=== PATIENT | male | born 1940 | race Caucasian/White ===

== ENCOUNTER 2017-06-21 09:33 | Outpatient (CLI) | payer MEDICARE, OTHER | END 2017-06-21 09:34 | disposition home or self-care (01) | LOC: SC 09:33 | PROVIDERS: ATTEND Internal Medicine Pulmonary Disease | DX: R53.83 Other fatigue (principal); E66.9 Obesity, unspecified; Z68.31 Body mass index [BMI] 31.0-31.9, adult | CPT/HCPCS: 99203; G0463; 99212 ==

== ENCOUNTER 2017-08-09 15:52 | Outpatient (CLI) | payer MEDICARE, OTHER ==
--- NOTE | 2017-08-10 09:51 | XRAY Report ---
DATE OF SERVICE: 08/09/2017 TWO VIEW CHEST: 08/09/2017 CLINICAL INDICATION: Left lower lobe rhonchi. FINDINGS: Frontal and lateral views of the chest demonstrate a normal cardiac silhouette. There is minimal linear atelectasis at the bases. No focal infiltrate, effusion, or pneumothorax is present. IMPRESSION: MINIMAL BASILAR ATELECTASIS. TD: 08/10/2017 10:50
--- NOTE | 2017-08-10 09:54 | XRAY Report ---
DATE OF SERVICE: 08/09/2017 THREE VIEW THORACIC SPINE: 08/09/2017 CLINICAL INDICATION: Point tenderness. FINDINGS: AP, lateral, swimmers views of the thoracic spine demonstrate normal height and alignment of the vertebral bodies. There has been previous posterior stephanie and pedicle screw fusion of L1-L2. There is no evidence of acute fracture or subluxation. No paraspinal hematoma is seen. Mild degenerative disk disease is present. IMPRESSION: MILD DEGENERATIVE CHANGES. PREVIOUS UPPER THORACIC FUSION. NO EVIDENCE OF ACUTE FRACTURE. TD: 08/10/2017 10:52
== END 2017-08-09 15:53 | disposition home or self-care (01) ==
LOC: DI 15:52
PROVIDERS: ATTEND Internal Medicine
DX: M51.34 Other intervertebral disc degeneration, thoracic region (principal); J98.11 Atelectasis; Z98.1 Arthrodesis status
CPT/HCPCS: 71046; 72070

== ENCOUNTER 2017-09-11 20:01 | Outpatient (CLI) | payer MEDICARE, OTHER | END 2017-09-11 20:02 | disposition home or self-care (01) | LOC: SC 20:01 | PROVIDERS: ATTEND Internal Medicine Pulmonary Disease | DX: G47.61 Periodic limb movement disorder (principal) | CPT/HCPCS: 95810 ==

== ENCOUNTER 2017-10-05 09:27 | Outpatient (CLI) | payer MEDICARE, OTHER | END 2017-10-05 09:28 | disposition home or self-care (01) | LOC: SC 09:27 | PROVIDERS: ATTEND Nurse Practitioner Family | DX: G47.61 Periodic limb movement disorder (principal); R06.83 Snoring | CPT/HCPCS: 99214; G0463; 99212 ==

== ENCOUNTER 2017-11-19 22:11 | Emergency (ER) | payer MEDICARE, OTHER ==
[2017-11-19 22:21] VITALS: BP 104/63
[2017-11-19] MEDS ORDERED: TETANUS/DIPHTHERIA/PERTUSSIS 0.5 ML SYRINGE IM ONE (23:47)
[2017-11-19] MEDS ORDERED: BUFFERED LIDOCAINE 10 ML SYRINGE ONE (23:47)
--- NOTE | 2017-11-19 23:49 | ED Physician Documentation ---
PD HPI UPPER EXT INJURY - Stated complaint Stated Complaint: LFT FINGER LAC - Chief complaint Chief Complaint: Laceration - History obtained from History obtained from: Patient, Family - History of Present Illness Location: Other (Right-handed gentleman with unknown tetanus status accidentally stabbed his left hand with a steak knife while eating just prior to arrival.) Review of Systems Constitutional: reports: Reviewed and negative Eyes: reports: Reviewed and negative Cardiac: reports: Reviewed and negative PD PAST MEDICAL HISTORY - Past Medical History Past Medical History: No - Past Surgical History Past Surgical History: No - Allergies Allergies/Adverse Reactions: Allergies Allergy/AdvReac Type Severity Reaction Status Date / Time No Known Drug Allergies Allergy Verified 11/19/17 22:19 - Social History Does the pt smoke?: No Smoking Status: Never smoker - Immunizations Immunizations are current?: No Immunizations: TDAP >10years/unknown PD ED PE NORMAL - Vitals Vital signs reviewed: Yes - General General: Alert and oriented X 3, No acute distress - Extremities Extremities: Other (There is a slightly less than 1 cm laceration just distal to the second MCP dorsally on the left hand with intact extensor tendon function and normal neurovascular status at the tip.) - Neuro Neuro: Alert and oriented X 3, Normal speech Results - Vitals Vitals: Vital Signs - 24 hr 11/19/17 22:13 Temperature 36.1 C L Heart Rate 67 Respiratory 18 Rate Blood Pressure 104/63 O2 Saturation 95 Oxygen O2 Source Room air Procedures - Laceration (location) Left hand Length in cm: 1 Wound type: Linear Neurovascular status: Sensory intact, Motor intact, Vascular intact Tendon involvement: Tendon intact Anesthesia: Lidocaine 1%, With bicarb Wound Preparation: Betadine, Irrigated copiously NS Skin layer closure: Nylon, Interrupted, Size #-0 - enter number (4-0), Sutures - enter # (2) Other: Tetanus booster given Complexity: Simple Departure - Departure Disposition: 01 Home, Self Care Clinical Impression: Laceration Condition: Good Record reviewed to determine appropriate education?: Yes Instructions: ED Laceration Hand Comments: Come back for any signs of infection which would include: Redness, swelling, drainage, increased pain, or fevers. Follow-up with your physician in 10-14 days for suture removal.
== END 2017-11-19 23:54 | disposition home or self-care (01) ==
LOC: ED 22:11
DX: S61.412A Laceration without foreign body of left hand, initial encounter (principal); W26.0XXA Contact with knife, initial encounter; Z23 Encounter for immunization
CPT/HCPCS: 12001; 90471; 99282

== ENCOUNTER 2017-12-26 15:38 | Outpatient (CLI) | payer MEDICARE, OTHER ==
--- NOTE | 2017-12-29 08:15 | XRAY Report ---
Procedure Date: 12/26/2017 Accession Number: [id number] / [id number] Procedure: XR - Hips 2V BILAT CPT Code: FULL RESULT: EXAM: Hips 2V BILAT DATE: 12/26/2017 4:12 PM CLINICAL HISTORY: PAIN AND LOW ROM,NECK,PELVIC AND PERINEAL PAIN,SUNIL TECHNIQUE: Frontal view of the pelvis and bilateral frog-leg lateral views of the hips COMPARISON: None FINDINGS: There is no evidence of fracture or dislocation. Postoperative changes are seen in the pelvis. Mild bilateral hip osteoarthritis is present. IMPRESSION: Mild bilateral osteoarthritis. No evidence of fracture.
--- NOTE | 2018-01-02 09:36 | XRAY Report ---
Procedure Date: 12/27/2017 Accession Number: [id number] / [id number] Procedure: XR - Cervical Spine Complete CPT Code: FULL RESULT: EXAM: CERVICAL SPINE RADIOGRAPHY EXAM DATE: 12/26/2017 04:25 PM. CLINICAL HISTORY: Pain and low ROM, neck, pelvic and perineal pain. COMPARISONS: Chest radiograph 12/26/2017. Thoracic spine radiograph 08/09/2017. TECHNIQUE: 3 views. FINDINGS: Alignment: No spondylolisthesis. No scoliosis. Bones: The cervical vertebral bodies and posterior elements are well visualized through C6-C7. Below this level there are obscured by the patient's shoulders. No fracture. No suspicious focal osseous lesion. Calcification noted in the posterior soft tissues/musculature at the C4 level. Disks: Multilevel disk height loss present throughout the cervical spine, greatest and severe at C5-C6 and C6-C7. Facets: Multilevel [id number] degenerative facet disease present. Soft Tissues: No prevertebral soft tissue swelling. Visualized lung apices are clear. Upper thoracic PSIF again noted. IMPRESSION: No acute abnormality of the cervical spine with multilevel degenerative spondylitic changes, greatest and severe disk height loss at C5-C6 and C6-C7 as before. RADIA
--- NOTE | 2018-01-02 09:37 | XRAY Report ---
Procedure Date: 12/27/2017 Accession Number: [id number] / [id number] Procedure: XR - Chest 2 View X-Ray CPT Code: 77337 FULL RESULT: EXAM: CHEST RADIOGRAPHY EXAM DATE: 12/26/2017 04:24 PM. CLINICAL HISTORY: Chest pain after fall. COMPARISON: Chest radiograph 08/09/2017. Same-day cervical spine radiographs. TECHNIQUE: 2 views. FINDINGS: Lungs/Pleura: No focal opacities evident. No pleural effusion. No pneumothorax. Normal volumes. Mediastinum: Heart and mediastinal contours are unremarkable. Other: Upper thoracic PSIF again noted. 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 IMPRESSION: No acute cardiopulmonary abnormality. RADIA
== END 2017-12-26 15:39 | disposition home or self-care (01) ==
LOC: DI 15:38
PROVIDERS: ATTEND Internal Medicine
DX: M16.0 Bilateral primary osteoarthritis of hip (principal); M50.31 Other cervical disc degeneration, high cervical region; M47.892 Other spondylosis, cervical region; R07.81 Pleurodynia; R07.9 Chest pain, unspecified; R29.6 Repeated falls
CPT/HCPCS: 71046; 72040; 73521

== ENCOUNTER 2018-05-03 15:36 | Outpatient (CLI) | payer MEDICARE, OTHER ==
--- NOTE | 2018-05-04 13:46 | CT Report ---
Reason: LOWER EXT WEAKNESS Procedure Date: 05/03/2018 Accession Number: [id number] / [id number] Procedure: CT - Cervical Spine W/O CPT Code: FULL RESULT: EXAM: CT CERVICAL SPINE WITHOUT CONTRAST DATE: 05/03/2018 03:55 PM. HISTORY: Lower extremity weakness COMPARISONS: Plain film radiographs 12/26/2017. TECHNIQUE: Thin-section axial images were acquired of the cervical spine without contrast. Post-processing: Coronal and sagittal reformats. Other: None. In accordance with CT protocol optimization, one or more of the following dose reduction techniques were utilized for this exam: automated exposure control, adjustment of mA and/or KV based on patient size, or use of iterative reconstructive technique. FINDINGS: Alignment: There is 2 mm anterolisthesis of C4 on C5. Bones: There is hardware in place status post remote posterior fusion at the T2 and T3 levels Interspace Levels/Facets: C1-C2: Unremarkable. C2-C3: There is moderate left facet hypertrophy. There is mild left neural foraminal narrowing. C3-C4: There is a prominent right posterior endplate osteophyte with moderate narrowing of right aspect of central canal. There is mild right neural foraminal narrowing. There is moderate left facet hypertrophy. C4-C5: There is severe left facet hypertrophy. There is 2 mm anterolisthesis of C4 on C5. No evidence of central canal narrowing. Mild left neural foraminal narrowing. C5-C6: There is disk height loss and endplate degenerative changes. There is a disk osteophyte complex with mild central canal narrowing. There is moderate bilateral neural foraminal narrowing. C6-C7: There is disk height loss. No significant central canal narrowing. There is uncovertebral osteophytosis with mild left and moderate right neural foraminal narrowing. C7-T1: Unremarkable. Musculature: Normal. No fatty atrophy. Other: The paravertebral and prevertebral soft tissues are unremarkable. The lung apices are clear. IMPRESSION: 1. C3-C4 endplate osteophytosis with moderate narrowing of right central canal. 2. C5-C6 disk osteophyte complex with mild central canal narrowing. 3. Moderate bilateral C5-C6 and moderate right C6-C7 neural foraminal narrowing. 4. Mild right C3-C4, mild left C4-C5, and mild left C6-C7 neural foraminal narrowing. RADIA
--- NOTE | 2018-05-04 14:13 | CT Report ---
Reason: LOWER EXT WEAKNESS Procedure Date: 05/03/2018 Accession Number: [id number] / [id number] Procedure: CT - Lumbar Spine W/O CPT Code: FULL RESULT: EXAM: CT LUMBAR SPINE WITHOUT CONTRAST EXAM DATE: 05/03/2018 03:55 PM. CLINICAL HISTORY: Lower extremity weakness COMPARISONS: None. TECHNIQUE: Thin-section axial images were acquired of the lumbar spine from T12 to S1 without contrast. Post-processing: Coronal and sagittal reformats. Other: None. In accordance with CT protocol optimization, one or more of the following dose reduction techniques were utilized for this exam: automated exposure control, adjustment of mA and/or KV based on patient size, or use of iterative reconstructive technique. FINDINGS: Alignment: No scoliosis or spondylolisthesis. Bones: Five awf-zib-tcuftuh lumbar vertebral bodies are present. No fractures or bone lesions. Disk Levels/Facets: T12-L1: There is disk height loss. There is a disk osteophyte complex. There is ligamentum flavum thickening. There is moderate central canal narrowing. L1-L2: There is a disk height loss disk bulge and endplate osteophytes. There is moderate bilateral facet hypertrophy. There is moderate to severe central canal narrowing. There is moderate right and mild left neural foraminal narrowing. L2-L3: There is disk height loss and a disk bulge. There is severe bilateral facet hypertrophy. There is moderate central canal narrowing. There is moderate bilateral neural foraminal narrowing. L3-L4: There is disk height loss. There is moderate facet hypertrophy. No significant central canal narrowing. Moderate bilateral neural foraminal narrowing. L4-L5: There is disk height loss and a mild disk bulge. There is severe bilateral facet hypertrophy. Prominent osteophytosis adjacent to the lamina and patient is likely status post prior laminectomies. There is mild central canal narrowing. There is mild right and moderate left neural foraminal narrowing. L5-S1: Mild disk bulge. Moderate bilateral facet hypertrophy. No significant central canal narrowing. Mild left neural foraminal narrowing. Musculature: There is moderate atrophy of posterior paraspinous musculature. Other: There is intermediate density soft tissue band extending from L2-L5 suggestive of prior surgery. There is a punctate right renal calculus. There are aortic calcifications. IMPRESSION: 1. L1-L2 disk bulge and facet hypertrophy with moderate to severe central canal narrowing. 2. L2-L3 disk bulge and posterior element degenerative changes with moderate central canal narrowing. 3. Mild L4-L5 central canal narrowing. 4. Moderate right L1-L2, moderate bilateral L2-L3, moderate bilateral L3-L4, and moderate left L4-L5 neural foraminal narrowing. 5. Mild left L1-L2, mild right L4-L5, and mild left L5-S1 neural foraminal narrowing. RADIA
== END 2018-05-03 15:37 | disposition home or self-care (01) ==
LOC: DI 15:36
PROVIDERS: ATTEND Internal Medicine
DX: M47.9 Spondylosis, unspecified (principal); M51.36 Other intervertebral disc degeneration, lumbar region; M48.061 Spinal stenosis, lumbar region without neurogenic claudication; M43.12 Spondylolisthesis, cervical region; M50.322 Other cervical disc degeneration at C5-C6 level; M48.02 Spinal stenosis, cervical region
CPT/HCPCS: 72125; 72131

== ENCOUNTER 2019-01-12 18:39 | Emergency (ER) | payer MEDICARE, OTHER ==
--- NOTE | 2019-01-12 20:08 | ED Physician Documentation ---
History of Present Illness - Stated complaint Stated Complaint: GLF - Chief complaint Chief Complaint: Trauma Hd/Nk - History obtained from History obtained from: Patient, Friend - History of Present Illness Timing: Yesterday (Trip and fall yesterday with lateral and medial left foot pain that is persistent. He hit his head mildly but denies loss of consciousness or headache. He is not anticoagulated.) Review of Systems Constitutional: reports: Reviewed and negative Cardiac: reports: Reviewed and negative Respiratory: reports: Reviewed and negative PD PAST MEDICAL HISTORY - Past Medical History Past Medical History: Yes Neuro: Head injury - Past Surgical History Past Surgical History: Yes Ortho: Spine surgery - Present Medications Home Medications: Ambulatory Orders Medication Instructions Recorded Confirmed Methocarbamol 0 mg 01/12/19 Oxycodone HCl/Acetaminophen 1 - 2 each PO Q6H PRN #10 tablet 01/12/19 [Percocet 5-325 mg Tablet] traZODone [Desyrel] 0 mg 01/12/19 - Allergies Allergies/Adverse Reactions: Allergies Allergy/AdvReac Type Severity Reaction Status Date / Time No Known Drug Allergies Allergy Verified 11/19/17 22:19 - Social History Does the pt smoke?: No Smoking Status: Never smoker Does the pt drink ETOH?: No Does the pt have substance abuse?: No - Immunizations Immunizations are current?: No Immunizations: TDAP >10years/unknown PD ED PE NORMAL - Vitals Vital signs reviewed: Yes - General General: Other (Has some memory difficulties) - HEENT HEENT: PERRL, EOMI - Extremities Extremities: Other (He has 4-second capillary refill in the left foot, mild tenderness over the medial and lateral forefoot. DP pulses barely palpable, monophasic on Doppler to both DP and PT.) - Neuro Neuro: field account director 2-12 intact Eye Opening: Spontaneous Motor: Obeys Commands Results - Vitals Vitals: Vital Signs - 24 hr 01/12/19 18:45 Temperature 36.5 C Heart Rate 65 Respiratory 16 Rate Blood Pressure 145/75 H O2 Saturation 96 Oxygen O2 Source Room air - Rads (name of study) L foot XR Radiology: EMP read contemporaneously (NAD) Procedures - Splint (location) L 4th finger Splint applied by: Physician Type of splint: Metal foam finger splint Other: Patient tolerated well, No complications, Neurovascular intact PD MEDICAL DECISION MAKING - ED course ED course: 78-year-old gentleman took a fall yesterday and injured his left foot. The examination is really more consistent with vascular disease. He does have monophasic pulses with 4 to 5-second capillary refill. X-ray was negative. Just prior to discharge he also noted left fourth finger pain, it was quite swollen at the PIP and I recommend recommended an x-ray of this it well which he refused saying he had to leave at the time. It was splinted and advised close recheck. He still had full range of motion so was not dislocated. Departure - Departure Disposition: Home, Self Care Clinical Impression: Sprain of left foot Qualifiers: Encounter type: initial encounter Qualified Code(s): S93.602A - Unspecified sprain of left foot, initial encounter Condition: Good Record reviewed to determine appropriate education?: Yes Health Concerns: left foot injury Plan of Treatment: X-rays are negative. Clinically you do have some vascular disease in that foot and you should talk with your physician about a referral to a vascular surgeon. You are not pulseless though. Care Goals: pain control Assessment: as above Instructions: ED Sprain Foot Follow-Up: EDNA VELÁZQUEZ MD [Primary Care Provider] - Prescriptions: Oxycodone HCl/Acetaminophen [Percocet 5-325 mg Tablet] 1 - 2 each PO Q6H PRN #10 tablet PRN Reason: pain
--- NOTE | 2019-01-12 21:08 | XRAY Report ---
Reason: foot inj Procedure Date: 01/12/2019 Accession Number: [id number] / [id number] Procedure: XR - Foot 3 View LT CPT Code: FULL RESULT: EXAM: LEFT FOOT RADIOGRAPHY EXAM DATE: 01/12/2019 08:45 PM. CLINICAL HISTORY: Foot injury last night. Redness and swelling. COMPARISON: None. TECHNIQUE: 3 views. FINDINGS: Bones: Normal. No fractures or bone lesions. Joints: Subtalar arthrodesis. No subluxations. Soft Tissues: Unremarkable. IMPRESSION: No acute bony abnormality identified. RADIA
[2019-01-12] MEDS ORDERED: oxyCODONE/ACET 5/325 Prepack 4 PO STA (21:13)
[2019-01-12 21:22] VITALS: BP 134/63
== END 2019-01-12 21:29 | disposition home or self-care (01) ==
LOC: ED 18:39
DX: S93.602A Unspecified sprain of left foot, initial encounter (principal); W01.0XXA Fall on same level from slipping, tripping and stumbling without subsequent striking against object, initial encounter; M79.645 Pain in left finger(s); M79.89 Other specified soft tissue disorders; I73.9 Peripheral vascular disease, unspecified
CPT/HCPCS: 29130; 99283

== ENCOUNTER 2019-01-24 09:20 | Outpatient (CLI) | payer MEDICARE, OTHER ==
--- NOTE | 2019-01-24 14:04 | Ultrasound Report ---
Reason: ABNORMAL RESULT OF OTHER CARDIOVASCULAR FUNCTION S Procedure Date: 01/24/2019 Accession Number: [id number] / [id number] Procedure: US - Duplex Lwr Ext Arterial Bilat CPT Code: FULL RESULT: EXAM: BILATERAL LOWER EXTREMITY ARTERIAL DOPPLER ULTRASOUND EXAM DATE: 01/24/2019 10:49 AM. CLINICAL HISTORY: Abnormal result of other cardiovascular functions. COMPARISON: None. TECHNIQUE: Real-time sonographic vascular imaging was performed by the supervisor cell room, utilizing color-flow, Doppler flow, and spectral analysis. Multiple pharmacy services representative static images were saved for review. FINDINGS: Lower extremity arterial duplex examination is performed with color Doppler, spectral Doppler and grayscale Doppler. No significant focal atherosclerotic disease is seen by sanchez scale Doppler in either lower extremity arterial system. Color Doppler demonstrates the arterial system of both lower extremities to be patent were sampled as described below. Spectral Doppler demonstrates preserved brisk systolic upstrokes throughout with triphasic or biphasic waveforms. RIGHT LOWER EXTREMITY: TURF FARMER: PSV 95 cm/sec, triphasic waveform. PSFA: PSV 89 cm/sec, triphasic waveform. MSFA: PSV 87 cm/sec, triphasic waveform. DSFA: PSV 46 cm/sec, triphasic waveform. PFA: PSV 70 cm/sec, triphasic waveform.. POP: PSV 49 cm/sec, triphasic waveform. LEANNE: PSV 70 cm/sec, triphasic waveform. EQUITY STRUCTURER: PSV 89 cm/sec, triphasic waveform. KARYN: PSV 87 cm/sec, triphasic waveform. DPA: PSV 53 cm/sec, triphasic waveform. LEFT LOWER EXTREMITY: TURF FARMER: PSV 112 cm/sec, triphasic waveform.. PSFA: PSV 80 cm/sec, triphasic waveform. MSFA: PSV 79 cm/sec, triphasic waveform. DSFA: PSV 43 cm/sec, biphasic waveform. PFA: PSV 62 cm/sec, triphasic waveform. POP: PSV 52 cm/sec, biphasic waveform. LEANNE: PSV 84 cm/sec, biphasic waveform. EQUITY STRUCTURER: PSV 86 cm/sec, biphasic waveform. KARYN: PSV 43 cm/sec, biphasic waveform. DPA: PSV 36 cm/sec, biphasic waveform. IMPRESSION: Normal study. RADIA
--- NOTE | 2019-01-24 15:58 | Ultrasound Report ---
Reason: ABNORMAL RESULT OF OTHER CARDIOVASCULAR FUNCTION S Procedure Date: 01/24/2019 Accession Number: [id number] / [id number] Procedure: US - Duplex Ext Veins Bilateral CPT Code: FULL RESULT: EXAM: BILATERAL LOWER EXTREMITY VENOUS ULTRASOUND EXAM DATE: 01/24/2019 10:01 AM. CLINICAL HISTORY: ABNORMAL RESULT OF OTHER CARDIOVASCULAR FUNCTION STUDIES COMPARISON: None. TECHNIQUE: Real-time sonographic vascular imaging was performed by the public relations player through the lower extremities utilizing both color-flow and Doppler spectral analysis. Multiple sales service representative static images were saved for review. FINDINGS: Right: Common Femoral Vein (CFV): Normal. CFV-GSV Junction: Normal. Profunda Femoral Vein (PFV): Normal. Femoral Vein (FV) Prox: Normal. Femoral Vein (FV) Mid: Normal. Femoral Vein (FV) Dist: Normal. Popliteal Vein: Normal. Posterior Tibial Veins: Normal. Peroneal Veins: Normal. Left: Common Femoral Vein (CFV): Normal. CFV-GSV Junction: Normal. Profunda Femoral Vein (PFV): Normal. Femoral Vein (FV) Prox: Normal. Femoral Vein (FV) Mid: Normal. Femoral Vein (FV) Dist: Normal. Popliteal Vein: Normal. Posterior Tibial Veins: Normal. Peroneal Veins: Normal. Other: None. IMPRESSION: No evidence for deep venous thrombosis bilateral lower extremities. RADIA
== END 2019-01-24 09:21 | disposition home or self-care (01) ==
LOC: DI 09:20
PROVIDERS: ATTEND Nurse Practitioner Family
DX: R94.39 Abnormal result of other cardiovascular function study (principal)
CPT/HCPCS: 93925; 93970

== ENCOUNTER 2019-06-19 10:31 | Emergency (ER) | payer MEDICARE, OTHER ==
--- NOTE | 2019-06-19 11:10 | ED Physician Documentation ---
PD HPI HEAD INJURY - Stated complaint Stated Complaint: GLF/HEAD INJ - Chief complaint Chief Complaint: Trauma Hd/Nk - History obtained from History obtained from: Patient, Family - History of Present Illness Mechanism of head injury: Fell Where head injury occurred: Home Timing - onset: Last night Quality of pain: Pain (To touch) Associated symptoms: Neck pain, Paresthesias (Neuropathy in the lower extremities bilaterally). No: LOC, Amnesia, Nausea / vomiting Contributing factors: No: Anticoagulated Recently seen: Not recently seen - Additional information Additional information: This is a 78-year-old man who presents with his complaints that he fell last night around 3:15 in the morning as he was getting up to go to the bathroom. He was walking with his walker lost his balance and fell backwards hitting his head on their heavy bedpost and then over onto the floor. He did not get knocked out. There was not any blood but he now has sore spots on his head and neck. His could not convince him to come in last night however the caregivers that came in today and know him well convinced him to come in. His said while he was on the floor last night he thought that there were fires all around and he was calling out for help. He did pull himself up off the floor without any assistance. He has not had any blurry or double vision. He does not feel dizzy. No vomiting. He has a chronic neuropathy but no new numbness or tingling or weakness. Last week he was having some diarrhea that has subsequently resolved. He and his had very different stories about how often he is falling and I cannot get a clear history of what his baseline mental status is. His says that even just yesterday he was not cooperating with her and ended up falling to the ground but did not hit his head. He is not wanting to comply with what she is asking him to do at home and this seems to be getting gradually worse. Review of Systems Constitutional: denies: Fever, Fatigue Eyes: denies: Decreased vision Ears: denies: Ear pain Nose: denies: Rhinorrhea / runny nose, Congestion Throat: denies: Sore throat Cardiac: denies: Chest pain / pressure, Palpitations Respiratory: denies: Dyspnea, Cough GI: denies: Abdominal Pain, Nausea, Vomiting, Diarrhea : denies: Dysuria, Frequency, Incontinent Skin: denies: Rash Musculoskeletal: reports: Neck pain, Back pain (Chronic back pain he has had prior back surgery.) Neurologic: reports: Numbness (Neuropathy in the lower extremities bilaterally), Confused (Seems to be worsening recently), Headache (States that the bumps on his head or sore), Head injury. denies: Focal weakness, Syncope Endocrine: reports: Other (Patient is not a diabetic) PD PAST MEDICAL HISTORY - Past Medical History Neuro: Head injury - Past Surgical History Past Surgical History: Yes Ortho: Spine surgery - Present Medications Home Medications: Ambulatory Orders Medication Instructions Recorded Confirmed Methocarbamol 0 mg 01/12/19 Oxycodone HCl/Acetaminophen 1 - 2 each PO Q6H PRN #10 tablet 01/12/19 [Percocet 5-325 mg Tablet] traZODone [Desyrel] 0 mg 01/12/19 - Allergies Allergies/Adverse Reactions: Allergies Allergy/AdvReac Type Severity Reaction Status Date / Time No Known Drug Allergies Allergy Verified 06/19/19 10:45 - Social History Does the pt smoke?: No Smoking Status: Never smoker Does the pt drink ETOH?: No Does the pt have substance abuse?: No - Immunizations Immunizations are current?: No Immunizations: TDAP >10years/unknown PD ED PE NORMAL - Vitals Vital signs reviewed: Yes - General General: No acute distress, Well developed/nourished, Other (He is clearly having memory issues. He frequently asks his for clarification of things.). No: Alert and oriented X 3 - HEENT HEENT: Atraumatic (I do not see any hematoma or bruising to the head or neck. There is no abrasion.), PERRL, EOMI, Moist mucous membranes, Pharynx benign - Neck Neck: No bony TTP, No adenopathy - Cardiac Cardiac: RRR, No murmur, Strong equal pulses - Respiratory Respiratory: No respiratory distress, Clear bilaterally - Abdomen Abdomen: Normal bowel sounds, Soft, Non tender, Non distended, No organomegaly - Derm Derm: Normal color, Warm and dry, No rash - Extremities Extremities: No edema - Neuro Neuro: light bulb replacer 2-12 intact, No motor deficit, No sensory deficit, Normal speech, Other ([id number] is intact). No: Alert and oriented X 3 (Oriented to person and place but did not know the day of week) - Psych Psych: Normal mood, Normal affect Results - Vitals Vitals: Vital Signs - 24 hr 06/19/19 06/19/19 06/19/19 10:45 11:00 11:30 Temperature 36.6 C Heart Rate 66 70 65 Respiratory 17 18 18 Rate Blood Pressure 151/75 H 164/87 H 140/99 H O2 Saturation 96 97 100 06/19/19 06/19/19 06/19/19 12:30 13:19 13:30 Temperature Heart Rate 59 L 60 76 Respiratory 17 12 14 Rate Blood Pressure 147/84 H 167/71 H 169/81 H O2 Saturation 98 97 97 06/19/19 06/19/19 06/19/19 14:00 14:30 15:00 Temperature Heart Rate 82 72 68 Respiratory 17 15 13 Rate Blood Pressure 159/77 H 113/90 H 159/81 H O2 Saturation 97 96 97 06/19/19 15:30 Temperature Heart Rate 66 Respiratory 16 Rate Blood Pressure 130/63 O2 Saturation 97 Oxygen O2 Source Room air - Labs Labs: Laboratory Tests 06/19/19 06/19/19 06/19/19 12:23 12:23 12:33 WBC 8.3 RBC 4.36 L Hgb 13.6 L Hct 41.8 L MCV 95.9 H MCH 31.2 H MCHC 32.5 RDW 13.1 Plt Count 206 MPV 10.0 Neut # (Auto) 5.0 Lymph # (Auto) 2.3 [place] # (Auto) 0.7 Eos # (Auto) 0.2 Baso # (Auto) 0.0 Absolute Nucleated RBC 0.00 Nucleated RBC % 0.0 Sodium 140 Potassium 4.1 Chloride 105 Carbon Dioxide 27 Anion Gap 8.0 BUN 22 H Creatinine 1.3 H Estimated GFR (MDRD) 54 L Glucose 96 Calcium 8.7 Total Bilirubin 0.7 AST 21 ALT 17 Alkaline Phosphatase 43 Total Protein 6.8 Albumin 4.0 Globulin 2.8 Albumin/Globulin Ratio 1.4 Lipase 38 Urine Color YELLOW Urine Clarity CLEAR Urine pH 6.0 Ur Specific [place] <=1.005 Urine Protein NEGATIVE Urine Glucose (UA) NEGATIVE Urine Ketones NEGATIVE Urine Occult Blood NEGATIVE Urine Nitrite NEGATIVE Urine Bilirubin NEGATIVE Urine Urobilinogen 0.2 (NORMAL) Ur Leukocyte Esterase NEGATIVE Ur Microscopic Review NOT INDICATED Urine Culture Comments NOT INDICATED PD MEDICAL DECISION MAKING - ED course Complexity details: reviewed results, re-evaluated patient, d/w patient, d/w family ED course: Laboratory studies are unremarkable. He does not have a urinary tract infection. His CT scan showed no evidence of hemorrhage or subdural. The radiologist did make a comment about the ventricular size and possibility of normal pressure hydrocephalus. The patient does have symptoms of confusion being off balance and some urinary incontinence although he has had the incontinence he says for years and the neuropathy he was always relating to his back. I did call and consult with the neurologist that he saw in 2018 who actually performed an EEG, Dr. Ruelas, and he did not feel that any further work-up for normal pressure hydrocephalus needed to be pursued at this time. The patient has an appointment with his primary care provider in July and there is a friend at the bedside now when I went in to talk with them tells me that they are arranging for them to be admitted for assisted living but it will not happen until the end of August. His cognitive symptoms certainly are consistent with worsening dementia which was also the feeling of the neurologist. Departure - Departure Disposition: 01 Home, Self Care Clinical Impression: Confusion, Neuropathy Fall Qualifiers: Encounter type: initial encounter Qualified Code(s): W19.XXXA - Unspecified fall, initial encounter Condition: Good Instructions: ED Confusion Follow-Up: EDNA VELÁZQUEZ MD [Primary Care Provider] - Comments: Keep the appointment with your primary care provider in the mid July. Make sure that whenever you are up you are ambulating with your walker to reduce the risk of further falls. Return as needed.
[2019-06-19 12:31] LABS: BASOPHILS % (AUTO) 0.4 %; EOSINOPHILS # (AUTO) 0.2 10^3/uL (0.0-0.7); EOSINOPHILS % (AUTO) 2.4 %; HGB - HEMOGLOBIN 13.6 g/dL (14.0-18.0); LYMPHOCYTES # (AUTO) 2.3 10^3/uL (1.5-3.5); LYMPHOCYTES % (AUTO) 27.8 %; MEAN CORPUSCULAR HEMOGLOBIN 31.2 pg (27.0-31.0); MEAN CORPUSCULAR HGB CONC 32.5 g/dL (32.0-36.0); MEAN CORPUSCULAR VOLUME 95.9 fL (80.0-94.0); MONOCYTES # (AUTO) 0.7 10^3/uL (0.0-1.0); MONOCYTES % (AUTO) 8.9 %; NEUTROPHILS % (AUTO) 60.1 %; PLT - PLATELET COUNT 206 10^3/uL (130-450); RED BLOOD COUNT 4.36 10^6/uL (4.70-6.10); RED CELL DISTRIBUTION WIDTH 13.1 % (12.0-15.0); WHITE BLOOD COUNT 8.3 x10^3/uL (4.8-10.8)
--- NOTE | 2019-06-19 12:36 | CT Report ---
Reason: head injury; off balance Procedure Date: 06/19/2019 Accession Number: [id number] / [id number] Procedure: CT - HEAD WO CPT Code: Final Report FULL RESULT: EXAM: CT HEAD EXAM DATE: 06/19/2019 12:09 PM. CLINICAL HISTORY: Fall. Head injury. Off balance COMPARISON: None. TECHNIQUE: Multiaxial CT images were obtained from the foramen magnum to the vertex. Reformats: Sagittal and coronal. IV contrast: None. In accordance with CT protocol optimization, one or more of the following dose reduction techniques were utilized for this exam: automated exposure control, adjustment of mA and/or KV based on patient size, or use of iterative reconstructive technique. FINDINGS: Parenchyma: No intraparenchymal hemorrhage. No evidence of mass, midline shift, or CT findings of infarction. Watts-white differentiation is distinct. Extraaxial Spaces: Normal for age. No subdural or epidural collections identified. Ventricles: Lateral ventricles are somewhat prominent. Sinuses and Orbits: Imaged paranasal sinuses, orbits, and mastoids show no significant abnormality. Bones: No evidence of fracture or calvarial defect. Other: Atherosclerotic calcification is seen in the distal vertebral arteries bilaterally and in each cavernous ICA. IMPRESSION: 1. No depressed skull fracture. 2. No CT evidence of acute intracranial injury. 3. Prominence of the lateral ventricles could reflect NPH or central volume loss. [facility]
[2019-06-19 12:45] LABS: ALBUMIN/GLOBULIN RATIO 1.4 (1.0-2.2); BILIRUBIN,TOTAL 0.7 mg/dL (0.2-1.0); CALCIUM 8.7 mg/dL (8.5-10.3); CREATININE 1.3 mg/dL (0.6-1.2); TOTAL PROTEIN 6.8 g/dL (6.7-8.2)
[2019-06-19 12:57] LABS: BILIRUBIN,URINE NEGATIVE (NEGATIVE); GLUCOSE, URINE (UA) NEGATIVE (NEGATIVE); KETONES,URINE (UA) NEGATIVE (NEGATIVE); LEUKOCYTE ESTERASE, URINE NEGATIVE (NEGATIVE); NITRITE,URINE NEGATIVE (NEGATIVE); OCCULT BLOOD,URINE NEGATIVE (NEGATIVE); PROTEIN,URINE NEGATIVE (NEGATIVE); UROBILINOGEN,URINE 0.2 (NORMAL) E.U./dL (NORMAL)
[2019-06-19 12:59] LABS: CLARITY,URINE CLEAR (CLEAR)
--- NOTE | 2019-06-19 13:03 | CT Report ---
Reason: neck pain Procedure Date: 06/19/2019 Accession Number: [id number] / [id number] Procedure: CT - CERVICAL SPINE WO CPT Code: Final Report FULL RESULT: EXAM: CT CERVICAL SPINE WITHOUT CONTRAST DATE: 06/19/2019 12:21 PM. HISTORY: Neck pain status post fall. COMPARISONS: CERVICAL SPINE W/O 05/03/2018 3:48 PM. TECHNIQUE: Thin-section axial images were acquired of the cervical spine without contrast. Post-processing: Coronal and sagittal reformats. Other: None. In accordance with CT protocol optimization, one or more of the following dose reduction techniques were utilized for this exam: automated exposure control, adjustment of mA and/or KV based on patient size, or use of iterative reconstructive technique. FINDINGS: Alignment: Approximately 7 degrees of dextroscoliosis present at C4-C5 similar to prior exam. Mild anterolisthesis at C4-C5 also present measuring 3 mm as before. Bones: No acute fracture or bone lesion evident. Bilateral posterior spinal fusion hardware spans the T2-T3 level unchanged. Interspace Levels/Facets: Severe disk space loss and degenerative disease present at the C5-C6, and to a lesser degree C6-C7 levels, not significantly changed. More mild to moderate disease present at the remaining levels of the cervical spine diffusely. There is also severe degenerative facet disease on the left from C2-T1 and more mild to moderate disease on the right diffusely from C2-T1. Musculature: Normal. No fatty atrophy. Other: The paravertebral and prevertebral soft tissues are unremarkable. The lung apices are clear. There is partial visualization of the aortic arch which appears mildly aneurysmal about the proximal descending thoracic aorta measuring up to 3.4 cm similar to prior exam. IMPRESSION: 1. No acute fracture or significant change. 2. Mild C4-C5 dextroscoliosis and anterolisthesis unchanged. 3. Bilateral posterior spinal fusion hardware T2-T3 unchanged. 4. Diffuse degenerative disk disease, most severe at the C5-C7 levels. 5. 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 [facility]
[2019-06-19 15:45] VITALS: BP 130/63
== END 2019-06-19 16:18 | disposition home or self-care (01) ==
LOC: ED 10:31
DX: S09.90XA Unspecified injury of head, initial encounter (principal); W01.190A Fall on same level from slipping, tripping and stumbling with subsequent striking against furniture, initial encounter; Y93.01 Activity, walking, marching and hiking; Y92.003 Bedroom of unspecified non-institutional (private) residence as the place of occurrence of the external cause; Z91.81 History of falling; R41.0 Disorientation, unspecified; G62.89 Other specified polyneuropathies; M50.322 Other cervical disc degeneration at C5-C6 level; M41.82 Other forms of scoliosis, cervical region; I71.2 Thoracic aortic aneurysm, without rupture; R32 Unspecified urinary incontinence
CPT/HCPCS: 36415; 70450; 72125; 80053; 81001; 81003; 83690; 85025; 87086; 99284